=== PATIENT | female | born 1960 | race Two or more races ===

== ENCOUNTER 2024-06-11 12:24 | Outpatient (CLI) | payer OTHER | END 2024-06-11 12:26 | disposition home or self-care (01) | LOC: RAD 12:24 | DX: M25.541 Pain in joints of right hand (principal) ==

== ENCOUNTER 2025-01-30 13:01 | Emergency (ER) | payer OTHER ==
[~2025-01-30] VITALS: Ht 160 cm; Wt 68.0 kg
[2025-01-30] MEDS ORDERED: LISINOPRIL10 MG PO (13:39)
[2025-01-30] MEDS ORDERED: MONTELUKAST SOD10 MG PO (13:39)
[2025-01-30] MEDS ORDERED: ALBUTEROL2.5 MG/3 M IH (13:39)
[2025-01-30 13:40] VITALS: BP 108/67; O2SAT 98
[2025-01-30] MEDS ORDERED: ONDANSETRON HCL 2 MG/ML VIAL IV STA (15:09)
[2025-01-30] MEDS ORDERED: 0.9 % SODIUM CHLORIDE 1,000 ML IV STA (15:09)
[2025-01-30] MEDS ORDERED: FAMOTIDINE/PF 20 MG/2 ML VIAL IV STA (15:09)
[2025-01-30] MEDS ORDERED: METOCLOPRAMIDE HCL 5 MG/ML VIAL IV ONE (15:15)
[2025-01-30] MEDS ORDERED: ONDANSETRON HCL 2 MG/ML VIAL ONE (15:44)
[2025-01-30] MEDS ORDERED: METOCLOPRAMIDE HCL 5 MG/ML VIAL ONE (15:44)
[2025-01-30] MEDS ORDERED: FAMOTIDINE/PF 20 MG/2 ML VIAL ONE (15:44)
[2025-01-30 16:11] LABS: BASO % 0.3 % (0.1-1.2); EOS # 0.07 (0.04-0.54); EOS % 1.1 % (0.7-7.0); LYMPH # 0.76 (1.18-3.74); LYMPH % 11.7 % (19.3-53.1); MEAN PLATELET VOLUME 9.20 fl (9.4-12.4); MONO # 0.44 (0.24-0.82); MONO % 6.8 % (4.7-12.5); NEUT # 5.17 (1.56-6.13); NEUT % 79.8 % (34.0-71.1); RED CELL DISTRIBUTION WIDTH 13.4 % (11.6-14.4)
[2025-01-30 16:32] LABS: ERYTHROCYTE SEDIMENTATION RATE 10 mm/hr (0-30)
[2025-01-30 16:39] LABS: INR 1.01
[2025-01-30 16:45] LABS: ALT/SGPT 406.0 U/L (12-78); AST/SGOT 784.0 U/L (15-37); BILIRUBIN TOTAL 1.19 mg/dL (0.3-1.2); BILIRUBIN,CONJUGATED 0.67 mg/dL (0.0-0.2); BUN CREA RATIO 26.0 (7.0-25.0); CREATININE SERUM 0.77 mg/dL (0.55-1.02); GFR 75.0; GLUCOSE FASTING 122.0 mg/dL (65-100); OSMOLALITY SERUM 289.0 MOSM/KG (275-295)
[2025-01-30 16:45] LABS: URINE APPEARANCE Clear; URINE BILIRRUBIN Negative (NEGATIVE); URINE BLOOD Negative; URINE COLOR Yellow; URINE GLUCOSE Negative (NEGATIVE); URINE LEUKOCYTE Small; URINE NITRATE Negative; URINE PROTEIN Trace (NEGATIVE); URINE UROBILINOGEN 2.0 E.U./dl
[2025-01-30 16:49] LABS: URINE BACTERIA 777.5 uL (0.0-1933); URINE EPITHELIAL CELLS 36.4 uL (0.0-38.8); URINE RBC 12.1 uL (0.0-20.8); URINE WBC 41.3 uL (0.0-23.2)
[2025-01-30 16:57] LABS: URINE CAST 0.29 uL (0.0-1.40); URINE KETONE 40 (NEGATIVE)
== END 2025-01-30 23:52 | disposition home or self-care (01) ==
LOC: ER 13:01
PROVIDERS: General Practice
DX: R10.11 Right upper quadrant pain (principal); R10.9 Unspecified abdominal pain; R11.0 Nausea; I10 Essential (primary) hypertension
CPT/HCPCS: 36415; 74177; 76700; 96365; 96366; 96372; 99284; J2405; J2765; J3490; J7030; Q9965

== ENCOUNTER → 2025-02-26 11:08 | Outpatient (CLI) | payer OTHER ==
[~2025-02-26 11:08] MED LIST: ALBUTEROL2.5 MG/3 M IH; LISINOPRIL10 MG PO; MONTELUKAST SOD10 MG PO
== END | disposition home or self-care (01) ==
LOC: NUCLEAR 11:00
DX: M81.0 Age-related osteoporosis without current pathological fracture (principal)